=== PATIENT | female | born 1990 | race African-American/Black ===

== ENCOUNTER 2019-07-20 10:59 | Emergency (ER) | payer OTHER ==
[2019-07-20 11:13] VITALS: BP 100/73; PULSE 96; TEMP 97.8; BMI 21.6
[2019-07-20] MEDS ORDERED: guaiFENesin/D-METHORPHAN HB 10 ML UNIT-DOSE CUPS PO ONE (11:34)
[2019-07-20] MEDS ORDERED: DEXAMETHASONE LIQUID 0.5 MG/5 ML PO ONE (11:34)
--- NOTE | 2019-07-20 11:40 | PDOC ---
History of Present Illness - General Chief Complaint: Respiratory Stated Complaint: COUGH Time Seen by Provider: 07/20/19 11:23 History Source: Patient Exam Limitations: No Limitations Past History - Travel Traveled outside of the country in the last 30 days: No Close contact w/someone who was outside of country & ill: No - Past Medical History Allergies/Adverse Reactions: Allergies Allergy/AdvReac Type Severity Reaction Status Date / Time No Known Allergies Allergy Verified 07/20/19 11:06 Home Medications: Ambulatory Orders Albuterol Sulfate Inhaler - [Ventolin HFA Inhaler -] 1 - 2 inh PO Q4H #1 inhaler 07/20/19 Guaifenesin AC [Robitussin AC] 10 ml PO Q8H #150 ud MDD 3 07/20/19 Methylprednisolone [Medrol Dose Ilya] 4 mg PO ASDIR #21 tablet 07/20/19 Anemia: Yes (IRON DEFICIENCY) - Psycho Social/Smoking Cessation Hx Smoking History: Never smoked Have you smoked in the past 12 months: No Hx Alcohol Use: No Drug/Substance Use Hx: No Substance Use Type: None Review of Systems - Review of Systems Able to Perform ROS?: Yes Comments:: 07/20/19 11:35 CONSTITUTIONAL: Absent: fever, chills, diaphoresis, generalized weakness, malaise, loss of appetite HEENT: Absent: rhinorrhea, nasal congestion, throat pain, throat swelling, difficulty swallowing, mouth swelling, ear pain, eye pain, visual Changes CARDIOVASCULAR: Absent: chest pain, loss of consciousness, palpitations, irregular heart rate, peripheral edema RESPIRATORY: Present: productive cough, wheezing. Absent: shortness of breath, dyspnea with exertion, orthopnea, stridor, hemoptysis GASTROINTESTINAL: Absent: abdominal pain, abdominal distension, nausea, vomiting, diarrhea, constipation, melena, hematochezia GENITOURINARY: Absent: dysuria, frequency, urgency, hesitancy, hematuria, flank pain, genital pain MUSCULOSKELETAL: Absent: myalgia, arthralgia, joint swelling SKIN: Absent: rash, itching, pallor HEMATOLOGIC/IMMUNOLOGIC: Absent: easy bleeding, easy bruising, lymphadenopathy, frequent infections ENDOCRINE: Absent: unexplained weight gain, unexplained weight loss, heat intolerance, cold intolerance NEUROLOGIC: Absent: headache, focal weakness or paresthesias, dizziness, unsteady gait, seizure, mental status changes, bladder or bowel incontinence PSYCHIATRIC: Absent: anxiety, depression, suicidal or homicidal ideation, hallucinations. Is the patient limited Sammarinese proficient: No *Physical Exam - Vital Signs Last Vital Signs Temp Pulse Resp BP Pulse Ox 97.8 F 96 H 18 100/73 96 07/20/19 11:07 07/20/19 11:07 07/20/19 11:07 07/20/19 11:07 07/20/19 11:07 - Physical Exam Comments: 07/20/19 11:40 GENERAL: Well developed, well nourished. Awake and alert. No acute distress. HEENT: Normocephalic, atraumatic. PERRLA, EOMI. No conjunctival pallor. Sclera are non- icteric. Moist mucous membranes. Oropharynx is clear. NECK: Supple. Full ROM. No JVD. Carotid pulses 2+ and symmetric, without bruits. No thyromegaly. No lymphadenopathy. CARDIOVASCULAR: Regular rate and rhythm. No murmurs, rubs, or gallops. Distal pulses are 2+ and symmetric. PULMONARY: No evidence of respiratory distress. Lungs with scattered expiratory wheezing. Wet cough observed. No rales or rhonchi. ABDOMINAL: Soft. Non-tender. Non-distended. No rebound or guarding. No organomegaly. Normoactive bowel sounds. MUSCULOSKELETAL Normal range of motion at all joints. No bony deformities or tenderness. No CVA tenderness. EXTREMITIES: No cyanosis. No clubbing. No edema. No calf tenderness. SKIN: Warm and dry. Normal capillary refill. No rashes. No jaundice. NEUROLOGICAL: Alert, awake, appropriate. Cranial nerves 2-12 intact. No deficits to light touch and temperature in face, upper extremities and lower extremities. No motor deficits in the in face, upper extremities and lower extremities. Normoreflexic in the upper and lower extremities. Normal speech. Toes are down- going bilaterally. Gait is normal without ataxia. PSYCHIATRIC: Cooperative. Good eye contact. Appropriate mood and affect. Medical Decision Making - Medical Decision Making 07/20/19 11:46 Patient is a 29-year-old female with no past medical history who presents to the ER today for 1 week of wet cough. She states that she is unsure as to what color her sputum is as she has not been able to cough up anything. She went to see her primary care doctor today who sent her to the ER due to wheezing. She states that she had some fatigue early in the week however now she just has the cough. Denies fevers, chills, sore throat, earache, chest pain, difficulty breathing, nausea, vomiting and diarrhea. Her last menstrual cycle was 3 weeks ago and she denies any chance of . A/P: Cough On exam patient with scattered expiratory wheezes and fair aeration of the bases. Wet cough observed without sputum production Duo nebs, steroids and chest x-ray ordered Reevaluate 07/20/19 13:27 Lung sounds now clear at the bases. No wheezing X-ray with no acute pathology Likely bronchitis DC home with supportive therapy I discussed the physical exam findings, ancillary test results and final diagnoses with the patient. I answered all of the patient's questions. The patient was satisfied with the care received and felt comfortable with the discharge plan and treatment plan. The Patient agrees to follow up with the primary care physician/specialist within 24-72 hours. Return precautions were given. Discharge - Discharge Information Problems reviewed: Yes Clinical Impression/Diagnosis: Bronchitis Condition: Stable Disposition: HOME - Admission No - Follow up/Referral Referrals: Lyndon Kirby [Primary Care Provider] - - Patient Discharge Instructions Patient Printed Discharge Instructions: DI for Acute Bronchitis Additional Instructions: You have bronchitis. Your chest x-ray was negative for pneumonia. Please use the inhaler every 4 hours for the next week to help with your cough. Continue taking the prednisone daily for the next 4 days. You may take the Robitussin with codeine at night before bed to help with your cough. Do not drive or drink alcohol after taking this medication as it may make you sleepy. Please follow up with your primary care doctor in 1 week if your symptoms are not improving. Return to the emergency department if you have fevers, chills, worsening cough, chest pain, worsening shortness of breath or if you have any changes in your symptoms. - Post Discharge Activity Work/Back to School Note: Back to Work
[2019-07-20] MEDS ORDERED: DEXAMETHASONE SOD PHOSPHATE 10 MG/1 ML VIAL ONE (11:48)
[2019-07-20] MEDS ORDERED: guaiFENesin/D-METHORPHAN HB 10 ML UNIT-DOSE CUPS ONE (11:49)
[2019-07-20] MEDS: ALBUTEROL SO4 2.5/IPRATROPIUM 0.5 INH SOL 3 ML VIAL.NEB. NEB SCH ×4 (11:53→12:45)
== END 2019-07-20 13:52 | disposition home or self-care (01) ==
LOC: JERFT 10:59
PROC: 3E0F7GC Introduction of Other Therapeutic Substance into Respiratory Tract, Via Natural or Artificial Opening (ICD-10-PCS; principal; 2019-07-20)
DX: J40 Bronchitis, not specified as acute or chronic (principal); D50.9 Iron deficiency anemia, unspecified
CPT/HCPCS: 71046-TC-FY; 94640; 99281-25

== ENCOUNTER 2019-11-24 18:20 | Emergency (ER) | payer OTHER ==
[2019-11-24 18:29] VITALS: BP 139/73; PULSE 111; TEMP 98.6; BMI 20.4
[2019-11-24] MEDS ORDERED: diphenhydrAMINE HCL 25 MG CAPSULE (FP) PO ONE ×2 (18:43→18:47)
[2019-11-24] MEDS ORDERED: DEXAMETHASONE SOD PHOSPHATE 10 MG/1 ML VIAL IM ONE (18:43)
[2019-11-24] MEDS ORDERED: FAMOTIDINE 20 MG TABLET PO ONE (18:43)
[2019-11-24] MEDS ORDERED: DEXAMETHASONE SOD PHOSPHATE 10 MG/1 ML VIAL ONE (18:47)
[2019-11-24] MEDS ORDERED: FAMOTIDINE 20 MG TABLET ONE (18:47)
--- NOTE | 2019-11-24 18:53 | PDOC ---
History of Present Illness - General Chief Complaint: Sore Throat Stated Complaint: THROAT PROBLEM Time Seen by Provider: 11/24/19 18:32 History Source: Patient Exam Limitations: No Limitations - History of Present Illness Initial Comments: 11/24/19 18:48 Patient is a 29-year-old female who presents to the ED with complaint of stating that she feels as if her throat is closing. She states that it started about 30 minutes ago. She denies any new soaps, deodorants, body washes, perfumes or foods. The last thing she ate was rice, cabbage and ox tails all made at home. She has not eaten out today. She states that this is never happened to her before. She does admit to being able to swallow her own fluids. She denies any shortness of breath. She denies any lip or tongue swelling. Past History - Past Medical History Allergies/Adverse Reactions: Allergies Allergy/AdvReac Type Severity Reaction Status Date / Time No Known Allergies Allergy Verified 11/24/19 18:29 Home Medications: Ambulatory Orders Albuterol Sulfate Inhaler - [Ventolin HFA Inhaler -] 1 - 2 inh PO Q4H #1 inhaler 07/20/19 Guaifenesin AC [Robitussin AC] 10 ml PO Q8H #150 ud MDD 3 07/20/19 Methylprednisolone [Medrol Dose Ilya] 4 mg PO ASDIR #21 tablet 07/20/19 Cetirizine HCl [Zyrtec -] 10 mg PO DAILY #5 tablet 11/24/19 Famotidine [Pepcid] 20 mg PO BID 5 Days #10 tablet 11/24/19 predniSONE [Deltasone -] 60 mg PO DAILY #12 tablet 11/24/19 Anemia: Yes (IRON DEFICIENCY) COPD: No - Psycho Social/Smoking Cessation Hx Smoking History: Never smoked Have you smoked in the past 12 months: No Hx Alcohol Use: No Drug/Substance Use Hx: Yes (marajuna) Substance Use Type: None Review of Systems - Review of Systems Comments:: 11/24/19 18:51 - Review of Systems Able to Perform ROS?: Yes Constitutional: No: Fever, Chills, Loss of Appetite, Night Sweats, Weakness HEENTM: No: Eye Pain, Vision changes, Ear Pain, Throat Pain, Mouth Pain, Difficulty Swallowing, positive: throat Swelling Respiratory: No: Cough, Shortness of Breath, Wheezing, Sputum Production Cardiac (ROS): No: Chest Pain, Chest Tightness, Palpitations, Irregular Heart Beat, Edema ABD/GI: No: Nausea, Vomiting, Abdominal Pain, Diarrhea Musculoskeletal: No: Muscle Pain, Back Pain, Joint Pain, Muscle Weakness, Neck Pain Integumentary: No: Lesions, Rash Neurological: No: Headache, Numbness, Tingling, Weakness, Speech Difficulties *Physical Exam - Vital Signs Last Vital Signs Temp Pulse Resp BP Pulse Ox 98.6 F 111 H 18 139/73 100 11/24/19 18:26 11/24/19 18:26 11/24/19 18:26 11/24/19 18:26 11/24/19 18:26 - Physical Exam 11/24/19 18:52 - Physical Exam General Appearance: Nourished, Appropriately Dressed, No Distress HEENT: EOMI, Normal Voice, No Pharyngeal Erythema, No Muffled/Hoarse voice, No Tonsillar Exudate, No Tonsillar Erythema, No Nasal Congestion, No Rhinorrhea, Hearing Grossly Normal, TMs Normal, No TM Bulging, No TM Dullness, No TM Erythema; no pharyngeal or tonsillar edema appreciated. Uvula midline and without edema. No posterior pharynx edema appreciated. No swelling of the soft palate appreciated no stridor. Patient tolerating her own secretions. Neck: Supple, No Lymphadenopathy (R), No Lymphadenopathy (L), No Rigidity, No Decreased range of motion Respiratory/Chest: Lungs Clear, Normal Breath Sounds. No Respiratory Distress, No Accessory Muscle Use; good air entry bilaterally. No wheezes/rales/rhonchi. No adventitious lung sounds. No retractions. Cardiovascular: Regular Rhythm, Regular Rate, S1, S2 Gastrointestinal/Abdominal: Normal Bowel Sounds, Soft. Non-tender, No Guarding , No Rebound, No Rigidity Musculoskeletal: Normal Inspection. No Decreased Range of Motion Extremity: Normal Capillary Refill, Normal Inspection Integumentary: Normal Color, Dry. No Rash Neurologic: medicaid specialist II-XII NML intact, Fully Oriented, Alert, Normal Mood/Affect, Normal Response Medical Decision Making - Medical Decision Making 11/24/19 18:53 Assessment: Patient is a 29-year-old female with sensation of her throat closing. Plan: -Although there are no findings of airway/throat/pharyngeal edema, we will treat the patient's symptoms as an allergic reaction. -Decadron IM given -Benadryl p.o. given -Pepcid p.o. given -Patient tolerated a p.o. challenge in the ED without difficulty. -Will observe and reassess. 11/24/19 19:22 The patient states that she is feeling much better and she is eager to go home. She states she does not feel like she has any throat swelling at this time. She is tolerating her own secretions and speaking in full sentences. Repeat evaluation of the patient's throat shows no pharyngeal or tonsillar edema, uvula midline and without edema and airway is patent. There is no stridor. The patient will be discharged with prescriptions for prednisone, Pepcid and Zyrtec. She has been made aware that she can also take Benadryl over-the- counter. She has been given strict return precautions such as difficulty swallowing, throat swelling, difficulty speaking, shortness of breath, tongue swelling or lip swelling. She understands and agrees with this treatment and plan and the patient is stable for discharge. Discharge - Discharge Information Problems reviewed: Yes Clinical Impression/Diagnosis: Sensation of swollen throat Condition: Stable Disposition: HOME - Additional Discharge Information Prescriptions: Cetirizine HCl [Zyrtec -] 10 mg PO DAILY #5 tablet Famotidine [Pepcid] 20 mg PO BID 5 Days #10 tablet predniSONE [Deltasone -] 60 mg PO DAILY #12 tablet - Follow up/Referral Referrals: Lyndon Kirby [Primary Care Provider] - 24 hours (Follow up with your primary doctor tomorrow, 11/25/19) - Patient Discharge Instructions Patient Printed Discharge Instructions: DI for General Allergic Reactions, DI for Angioedema Additional Instructions: Be sure to drink plenty of fluids. Take the medications as prescribed and complete the entire course of all medications. Be sure to return immediately to the emergency department for difficulty swallowing, throat swelling, difficulty speaking, shortness of breath, tongue swelling or lip swelling. Follow-up with your primary doctor within 24 hours for repeat evaluation. - Post Discharge Activity Work/Back to School Note: Back to Work
== END 2019-11-24 19:41 | disposition home or self-care (01) ==
LOC: JERFT 18:20
PROC: 3E0233Z Introduction of Anti-inflammatory into Muscle, Percutaneous Approach (ICD-10-PCS; principal; 2019-11-24)
DX: T78.40XA Allergy, unspecified, initial encounter (principal); X58.XXXA Exposure to other specified factors, initial encounter
CPT/HCPCS: 99284-25; J1100

== ENCOUNTER 2021-03-20 09:22 | Emergency (ER) | payer OTHER ==
[2021-03-20 09:36] VITALS: BP 122/88; PULSE 101; TEMP 98.6; BMI 24.5
[2021-03-20] MEDS ORDERED: KETOROLAC TROMETHAMINE 30 MG/1 ML VIAL IM ONE (09:44)
[2021-03-20] MEDS ORDERED: KETOROLAC TROMETHAMINE 30 MG/1 ML VIAL ONE (09:46)
== END 2021-03-20 10:19 | disposition home or self-care (01) ==
LOC: JER 09:22 → JERFT 09:22
PROC: 3E0233Z Introduction of Anti-inflammatory into Muscle, Percutaneous Approach (ICD-10-PCS; principal; 2021-03-20)
DX: S93.401A Sprain of unspecified ligament of right ankle, initial encounter (principal)
CPT/HCPCS: 73610-TC-RT-FY; 99284-25

== ENCOUNTER 2022-11-26 10:18 | Emergency (ER) | payer OTHER ==
[2022-11-26 10:30] VITALS: BP 134/92; PULSE 110; RESP 18; TEMP 98; BMI 27.4
[2022-11-26] MEDS ORDERED: IBUPROFEN 600 MG TABLET (FP) PO ONE ×2 (11:40→11:43)
== END 2022-11-26 12:19 | disposition home or self-care (01) ==
LOC: JERFT 10:18
DX: S82.831A Other fracture of upper and lower end of right fibula, initial encounter for closed fracture (principal); W10.8XXA Fall (on) (from) other stairs and steps, initial encounter
CPT/HCPCS: 73610-TC-RT-FY; 73630-TC-RT-FY; 99283-25